=== PATIENT | female | born 1975 | race Two or more races ===

== ENCOUNTER → 2016-07-04 | Outpatient (CLI) | payer OTHER ==
[~2016-07-04] MED LIST: ALENDRONATE SODIUM; CALCIUM; FLUOXETINE; LAMOTRIGINE; OMEPRAZOLE; VITAMIN D
--- NOTE | 2016-07-04 15:48 | RADRPT ---
PROCEDURE: Gastric emptying scan CLINICAL INDICATION: 41 -year-old patient with abdominal pain. TECHNIQUE: Following the oral administration of 1.0 mCi of Tc-99m sulfur colloid, labeled to a yonatan id meal, gastric emptying study was obtained. COMPARISON: No prior studies. FINDINGS: The stomach is well visualized. The small intestines are identified. There is evidence of normal gastric emptying rate from the start of the study with calculated T1/2 t arik of 56 minutes (normal range is 30 - 90 minutes). There is no evidence of increased activity in the chest to suggest the presence of gastroesophageal reflux. IMPRESSION: Normal gastric emptying rate . RPTAT: HH .Mery Hodges MD, MD Date Time Electronically viewed and signed by .Mery Hodges MD, on 07/04/2016 15:48 .L/
== END | disposition home or self-care (01) ==
LOC: NUC 09:21
PROVIDERS: ATTEND Surgery Surgical Oncology
DX: K44.9 Diaphragmatic hernia without obstruction or gangrene (principal)
CPT/HCPCS: 78264; A9541

== ENCOUNTER 2016-08-29 10:31 | Inpatient (IN) | payer OTHER ==
[2016-08-28 14:14] VITALS: BMI 27.1
[2016-08-29] VITALS (15 sets, daily range): BP systolic 104–138; BP diastolic 55–75; PULSE 88–120; RESP 12–28; Ht 157.5 cm; Wt 63.0 kg
[~2016-08-29] VITALS: Ht 157.5 cm; Wt 63.0 kg
[2016-08-29] MEDS ORDERED: SOD CHLORIDE 0.9% 1,000 ML IV SCH (11:00)
[2016-08-29] MEDS ORDERED: CEFAZOLIN 2 GM/50 ML (PMX) 50 ML IVPB ONE (11:00)
[2016-08-29] MEDS ORDERED: MIDAZOLAM 1 MG/ML 2 ML INJ ONE ×2 (13:40→14:02)
[2016-08-29] MEDS ORDERED: FENTAnyl 50 MCG/ML VIAL ONE (13:40)
[2016-08-29] MEDS ORDERED: METOCLOPRAMIDE 10 MG INJ ONE (13:46)
[2016-08-29] MEDS ORDERED: FAMOTIDINE 20 MG INJ ONE (13:48)
[2016-08-29] MEDS ORDERED: CEFAZOLIN 1 GM INJ ONE (14:11)
[2016-08-29] MEDS ORDERED: ROCURONIUM 50 MG INJ ONE (14:21)
[2016-08-29] MEDS ORDERED: PHENYLephrine (100 MCG/ML) 5ML SYG ONE (14:26)
[2016-08-29] MEDS ORDERED: DEXAMETHASONE 4 MG/ML 1 ML INJ ONE (14:41)
[2016-08-29] MEDS ORDERED: ONDANSETRON 4 MG INJ ONE (14:41)
[2016-08-29] MEDS ORDERED: BUPIVACAINE 0.25% (MPF) 30 ML INJ ONE (14:45)
[2016-08-29] MEDS ORDERED: PROCHLORPERAZINE 10 MG INJ IV PRN (15:00)
[2016-08-29] MEDS ORDERED: HYDROmorphONE (0.2 MG/ML) 10ML SYG IV PRN ×3 (15:00)
[2016-08-29] MEDS ORDERED: DIPHENHYDRAMINE 50 MG INJ IV PRN (15:00)
[2016-08-29] MEDS ORDERED: MEPERIDINE 25 MG INJ IV PRN (15:00)
[2016-08-29] MEDS ORDERED: ROPIVACAINE 0.2% 20 ML VIAL ONE (15:50)
[2016-08-29] MEDS ORDERED: morphine 10 MG INJ ONE (16:10)
--- NOTE | 2016-08-29 16:38 | OPR ---
DATE OF OPERATION: 08/29/2016 INDICATION: This is a 41-year-old female with recalcitrant GERD who has not had adequate symptom co ntrol with maximal PPIs. Additionally, she has been suffering osteoporosis and has been recommended for surgical management of her recalcitrant GERD. Risks, alternatives, benefits, and personnel wer e discussed with the patient. The patient expressed understanding and consents to the operation. PREOPERATIVE DIAGNOSIS: Recalcitrant gastroesophageal reflux disease and osteoporosis. POSTOPERATIVE DIAGNOSIS: Recalcitrant gastroesophageal reflux disease and osteoporosis. OPERATION PERFORMED: Laparoscopic Kashif fundoplication with ACell 6-layer mesh. PROCEDURE: The patient was taken to the OR and prepped and draped in the usual sterile fashion. Abebe rgical timeout was performed. IV antibiotics were given. Left upper periumbilical transverse incis ion was made with a 15 blade. Using a 12 mm optical trocar, optical entry was performed. Midepigas tric 5 mm optical trocar, right mid clavicular subcostal 5 mm optical trocar, left subcostal midclav icular 12 mm optical trocar, left upper flank 5 mm optical trocars are placed under direct visualiza tion. The midepigastric port is removed and used to place a snake liver retractor. The hiatus is i dentified. ____ is identified and divided using laparoscopic Harmonic. This was taken all the way down to the right pretty. The right pretty is bluntly dissected off from the esophagus. The posterior dissection is achieved and esophagus is mobilized posteriorly. Anteriorly, the peritoneum off the e sophagus is also divided using laparoscopic Harmonic. The left pretty was then identified, and the es ophagus is completely mobilize in a 360 fashion. Winter drain was placed around the esophagus, and an 0 Vicryl Endoloop was used to secure the Maribell drain for retraction. The short gastrics were divided in order to mobilize the fundus. The posterior fundus was then identified with a 2-0 silk s uture. This was used to retract the fundus posteriorly behind the esophagus. Shoeshine maneuver wa s performed, and there was no evidence of any tension. A 50 gauge bougie is placed into the esophag us and held in place after appropriate placement. The fundoplication was then performed with 1 inte rrupted 3-0 Prolene across the fundus with bite across the esophagus and back onto the right fundus. An interrupted silk suture is placed 1 cm above and 1 cm below this initial point. The bougie was then removed. The hiatus was then reinforced with an ACell mesh cut to fashion with a keyhole inci cathryn. This was sutured in place with interrupted 2-0 Ethibond to the right and left pretty. There wa s good hemostasis. Ports removed under direct visualization. Skin was closed using skin jason. Local anesthesia was injected, and dry dressings were applied. Dictated By: CAMDEN PULLIAM/JOSE Conf#: [id number] DID#: [id number]
[2016-08-29 16:52] LABS: ADD SCAN DIFF NO
[2016-08-29 16:55] LABS: BASOPHILS % 0.4 % (0.0-2.0); EOSINOPHILS % 0.2 % (0.0-7.0); HEMATOCRIT 36.6 % (37.0-47.0); HEMOGLOBIN 12.2 g/dl (12.0-16.0); LYMPHOCYTES # 1.8 10^3/ul (0.8-2.9); LYMPHOCYTES % 16.8 % (15.0-51.0); MEAN CORPUSCULAR HEMOGLOBIN 29.8 pg (29.0-33.0); MEAN CORPUSCULAR HGB CONC 33.3 g/dl (32.0-37.0); MEAN CORPUSCULAR VOLUME 89.5 fl (82.0-101.0); MEAN PLATELET VOLUME 8.9 fl (7.4-10.4); MONOCYTE # 0.3 10^3/ul (0.3-0.9); MONOCYTES % 2.8 % (0.0-11.0); NEUTROPHIL # 8.6 10^3/ul (1.6-7.5); NEUTROPHILS % 79.4 % (39.0-77.0); PLATELET COUNT 226 10^3/UL (140-415); RED BLOOD COUNT 4.09 10^6/ul (4.20-5.40); RED CELL DISTRIBUTION WIDTH 12.1 % (11.5-14.5); WHITE BLOOD COUNT 10.9 10^3/ul (4.8-10.8)
[2016-08-29 17:17] LABS: ALBUMIN 3.4 g/dl (3.3-4.9); ALBUMIN/GLOBULIN RATIO 1.41; BILIRUBIN,INDIRECT 0.3 mg/dl (0-1.1); BILIRUBIN,TOTAL 0.3 mg/dl (0.2-1.3); CALCIUM 8.2 mg/dl (8.4-10.2); CREATININE 0.59 mg/dl (0.44-1.00); POTASSIUM 3.6 mmol/L (3.5-5.1); TOTAL PROTEIN 5.8 g/dl (6.1-8.1)
[2016-08-29] MEDS: CEFAZOLIN 2 GM/50 ML (PMX) 50 ML IVPB SCH (18:35)
[2016-08-29] MEDS: D5W-0.45 NACL + KCL 20 MEQ 1,000 ML IV SCH (18:35)
--- NOTE | 2016-08-29 19:00 | HP ---
DATE OF ADMISSION: 08/29/2016 CHIEF COMPLAINT AND HISTORY OF PRESENT ILLNESS: The patient is a 41-year-old female with a history of chronic heartburn, status post endoscopy back in [address] Sung. The patient at that time u sed to be on omeprazole 40 mg once a day and Zantac 200 mg at bedtime. The patient also was noted t o have hiatal hernia. The patient, however, continued to remain symptomatic and was subsequently di agnosed with recalcitrant gastroesophageal reflux disease. The patient was brought in to hospital t [facility] and underwent laparoscopic Kashif fundoplication. The patient subsequently sedated. The patie nt is breathing comfortably, no reported vomiting. The patient does not have any chest congestion. The patient prior to surgery was told that she also has osteoporosis and therefore surgical managem ent was recommended. Patient gastric emptying prior to surgery was normal. The patient also had pr eoperative gastrin level, the result is not available. REVIEW OF SYSTEMS: Rather limited as the patient was sedated but since admission, the patient has n ot had any vomiting. The patient is moving all extremities. ALLERGIES: NAPROSYN. ALLERGIES: NONE. SOCIAL HISTORY: No smoking, no alcohol. FAMILY HISTORY: Noncontributory. PHYSICAL EXAMINATION: GENERAL: The patient is sedated. VITAL SIGNS: Temperature 98, pulse 58, respirations 15, blood pressure 107/55, O2 saturation 99% on 2 liters nasal cannula. HEENT: No eye or ear discharge. Nose and ears normal externally. NECK: No mass. CHEST: Fairly clear. CARDIOVASCULAR: S1, S2 normal. Mild sinus tachycardia. ABDOMEN: The patient is status post laparoscopic fundoplication. EXTREMITIES: No pedal edema. Pedal pulses palpable. SKIN: Without acute rash. NEUROLOGIC: The patient is sedated but moves all extremities spontaneously. LABORATORY DATA: Sodium 137, potassium 3.6, BUN 8, creatinine 0.5, calcium 8.2. Liver enzymes norm al. WBC 10.9, hemoglobin 12.2, platelets 226. IMPRESSION: 1. Recalcitrant gastroesophageal reflux disease and osteoporosis. 2. Hiatal hernia. 3. The patient is status post laparoscopic knee pain and Kashif fundoplication. PLAN: The patient will be admitted on medical floor. Patient will be started on clear liquids once she is more awake. The patient will be given IV fluids, IV morphine. Will also add IV Zofran for p ain control. We will also start her on IV Protonix. Will do followup labs in the morning. We will use SCD for DVT prophylaxis. Plan of care discussed with patient's parents as well as nursing sta ff present in the room. Dictated By: VALENCIA SANTANA/JOSE Conf#: [id number] DID#: [id number]
[2016-08-29] MEDS: morphine 2 MG INJ IV PRN (22:53)
[2016-08-30] VITALS: BP 96/58; RESP 18
[2016-08-30] MEDS: CEFAZOLIN 2 GM/50 ML (PMX) 50 ML IVPB SCH ×2 (01:24→08:30)
[2016-08-30] MEDS: D5W-0.45 NACL + KCL 20 MEQ 1,000 ML IV SCH ×2 (02:03→12:03)
[2016-08-30] MEDS: morphine 2 MG INJ IV PRN (02:19)
[2016-08-30 05:15] LABS: ADD SCAN DIFF NO
[2016-08-30 05:29] LABS: BASOPHILS % 0.2 % (0.0-2.0); HEMATOCRIT 38.7 % (37.0-47.0); HEMOGLOBIN 12.9 g/dl (12.0-16.0); LYMPHOCYTES # 1.5 10^3/ul (0.8-2.9); LYMPHOCYTES % 12.2 % (15.0-51.0); MEAN CORPUSCULAR HEMOGLOBIN 29.8 pg (29.0-33.0); MEAN CORPUSCULAR HGB CONC 33.3 g/dl (32.0-37.0); MEAN CORPUSCULAR VOLUME 89.4 fl (82.0-101.0); MEAN PLATELET VOLUME 9.2 fl (7.4-10.4); MONOCYTE # 0.7 10^3/ul (0.3-0.9); NEUTROPHILS % 81.2 % (39.0-77.0); PLATELET COUNT 322 10^3/UL (140-415); RED BLOOD COUNT 4.33 10^6/ul (4.20-5.40); WHITE BLOOD COUNT 12.3 10^3/ul (4.8-10.8)
[2016-08-30 06:05] LABS: POTASSIUM 3.4 mmol/L (3.5-5.1)
[2016-08-30 06:07] LABS: CREATININE 0.55 mg/dl (0.44-1.00)
[2016-08-30 06:08] LABS: ALBUMIN/GLOBULIN RATIO 1.42; BILIRUBIN,INDIRECT 0.4 mg/dl (0-1.1); BILIRUBIN,TOTAL 0.4 mg/dl (0.2-1.3); TOTAL PROTEIN 6.8 g/dl (6.1-8.1)
[2016-08-30 06:09] LABS: CALCIUM 8.8 mg/dl (8.4-10.2)
[2016-08-30 08:03] VITALS: BP 112/73; RESP 19
[2016-08-30] MEDS ORDERED: PANTOPRAZOLE 40 MG INJ IV SCH (09:00)
[2016-08-30] MEDS ORDERED: HYDROCODONE/APAP (5/325) TAB PO PRN ×2 (09:00)
--- NOTE | 2016-08-30 09:24 | OPR ---
Date/Time of Note Date/Time of Note DATE: 08/30/16 TIME: 09:24 Operative Report Procedure Date: August 29, 2016 Preoperative Diagnosis recalcitrant gerd Postoperative Diagnosis same Operation Performed lap nadege fundoplication with mesh Surgeon: Darling MENG G. SEONG August 30, 2016 09:24
--- NOTE | 2016-08-30 09:25 | PN ---
Date/Time of Note Date/Time of Note DATE: 08/30/16 TIME: 09:25 Assessment/Plan VTE Prophylaxis VTE Prophylaxis Intervention: SCD's Lines/Catheters IV Catheter Type (from Nrs): Peripheral IV Urinary Cath still in place: Yes Reason Cath still needed: other (indicate) Assessment/Plan Chief Complaint/Hosp Course s/p nadege fundoplication with mesh Problems: Assessment/Plan ok to dc when tolerating clears Subjective 24 Hr Interval Summary Free Text/Dictation doing well, no issues Exam/Review of Systems Vital Signs Vitals Vital Signs Date Time Temp Pulse Resp B/P Pulse Ox O2 Delivery O2 Flow Rate FiO2 08/30/16 08:03 98.0 106 19 112/73 98 08/29/16 18:47 2.0 08/29/16 18:30 Nasal Cannula Intake and Output 08/29/16 08/29/16 08/30/16 15:00 23:00 07:00 Intake Total 1450 ml 800 ml Output Total 920 ml 1100 ml Balance 530 ml -300 ml Exam c/d/i Results Result Diagram: 08/30/16 0415 08/30/16 0415 Results 24 hrs Laboratory Tests Test 08/29/16 16:46 08/30/16 04:15 White Blood Count 10.9 H 12.3 H Red Blood Count 4.09 L 4.33 Hemoglobin 12.2 12.9 Hematocrit 36.6 L 38.7 Mean Corpuscular Volume 89.5 89.4 Mean Corpuscular Hemoglobin 29.8 29.8 Mean Corpuscular Hemoglobin Concent 33.3 33.3 Red Cell Distribution Width 12.1 12.0 Platelet Count 226 322 # Mean Platelet Volume 8.9 9.2 Neutrophils % 79.4 H 81.2 H Lymphocytes % 16.8 12.2 L Monocytes % 2.8 6.0 Eosinophils % 0.2 0.0 Basophils % 0.4 0.2 Nucleated Red Blood Cells % 0.0 0.0 Neutrophils # 8.6 H 10.0 H Lymphocytes # 1.8 1.5 Monocytes # 0.3 0.7 Eosinophils # 0.0 0.0 Basophils # 0.0 0.0 Nucleated Red Blood Cells # 0.0 0.0 Sodium Level 137 138 Potassium Level 3.6 3.4 L Chloride Level 109 102 Carbon Dioxide Level 24 25 Anion Gap 8 14 Blood Urea Nitrogen 8 4 L Creatinine 0.59 0.55 Glucose Level 142 116 Calcium Level 8.2 L 8.8 Total Bilirubin 0.3 0.4 Direct Bilirubin 0.00 0.00 Indirect Bilirubin 0.3 0.4 Aspartate Amino Transf (AST/SGOT) 44 45 Alanine Aminotransferase (ALT/SGPT) 53 43 Alkaline Phosphatase 46 49 Total Protein 5.8 L 6.8 # Albumin 3.4 4.0 Globulin 2.40 2.80 Albumin/Globulin Ratio 1.41 1.42 Medications Medications Current Medications Cefazolin Sodium/ Dextrose (Ancef 2 Gm/50 ml (Pmx)) 50 ml @ 100 mls/hr Q8H IVPB Last administered on 08/30/16 01:24; Admin Dose 100 MLS/HR; Start at 16:30; Stop 08/30/16 at 16:29 Morphine Sulfate 2 mg 2 mg Q2H PRN IV PAIN LEVEL 6-10 Last administered on 08/30 02:19; Admin Dose 2 MG; Start 08/29/16 at 16:30 Potassium Chloride/Dextrose/ Sod Cl (D5-1/2ns + KCl 20 Meq) 1,000 ml @ 100 mls/ hr Q10H IV Last administered on 08/29/16 18:35; Admin Dose 100 MLS/HR; Start 08/29/16 at 16:03 Pantoprazole (Protonix Iv) 40 mg QAM IV ; Start 08/30/16 at 09:00 Acetaminophen/ Hydrocodone Bitart ([place] (5/325)) 2 tab Q6H PRN PO PAIN LEVEL 7 -10; Start 08/30/16 at 09:00 Acetaminophen/ Hydrocodone Bitart ([place] (5/325)) 1 tab Q6H PRN PO PAIN LEVEL 4 -6; Start 08/30/16 at 09:00 Darling MENG August 30, 2016 09:25
[2016-08-30] MEDS ORDERED: ACETAMINOPHEN 325/HYDROC 7.5 15 ML CUP PO ONE (10:00)
--- NOTE | 2016-08-30 11:07 | PN ---
Date/Time of Note Date/Time of Note DATE: 08/30/16 TIME: 11:06 Assessment/Plan VTE Prophylaxis VTE Prophylaxis Intervention: other Lines/Catheters IV Catheter Type (from Nrsg): Peripheral IV Urinary Cath still in place: Yes Reason Cath still needed: skin wounds contaminated by urine Assessment/Plan Chief Complaint/Hosp Course 1. Recalcitrant gastroesophageal reflux disease and osteoporosis. 2. Hiatal hernia. - status post laparoscopic knee pain and Kashif fundoplication. Problems: Subjective 24 Hr Interval Summary Free Text/Dictation Patient complain of pain related to recent surgery Exam/Review of Systems Vital Signs Vitals Vital Signs Date Time Temp Pulse Resp B/P Pulse Ox O2 Delivery O2 Flow Rate FiO2 08/30/16 08:03 98.0 106 19 112/73 98 08/29/16 18:47 2.0 08/29/16 18:30 Nasal Cannula Intake and Output 08/29/16 08/29/16 08/30/16 15:00 23:00 07:00 Intake Total 1450 ml 800 ml Output Total 920 ml 1100 ml Balance 530 ml -300 ml Exam Constitutional: well developed Head: atraumatic, normocephalic Neck: supple Respiratory: clear to auscultation Cardiovascular: regular rate and rhythm Gastrointestinal: soft, tender Extremities: normal pulses Results Result Diagram: 08/30/16 0415 08/30/16 0415 Results 24 hrs Laboratory Tests Test 08/29/16 16:46 08/30/16 04:15 White Blood Count 10.9 H 12.3 H Red Blood Count 4.09 L 4.33 Hemoglobin 12.2 12.9 Hematocrit 36.6 L 38.7 Mean Corpuscular Volume 89.5 89.4 Mean Corpuscular Hemoglobin 29.8 29.8 Mean Corpuscular Hemoglobin Concent 33.3 33.3 Red Cell Distribution Width 12.1 12.0 Platelet Count 226 322 # Mean Platelet Volume 8.9 9.2 Neutrophils % 79.4 H 81.2 H Lymphocytes % 16.8 12.2 L Monocytes % 2.8 6.0 Eosinophils % 0.2 0.0 Basophils % 0.4 0.2 Nucleated Red Blood Cells % 0.0 0.0 Neutrophils # 8.6 H 10.0 H Lymphocytes # 1.8 1.5 Monocytes # 0.3 0.7 Eosinophils # 0.0 0.0 Basophils # 0.0 0.0 Nucleated Red Blood Cells # 0.0 0.0 Sodium Level 137 138 Potassium Level 3.6 3.4 L Chloride Level 109 102 Carbon Dioxide Level 24 25 Anion Gap 8 14 Blood Urea Nitrogen 8 4 L Creatinine 0.59 0.55 Glucose Level 142 116 Calcium Level 8.2 L 8.8 Total Bilirubin 0.3 0.4 Direct Bilirubin 0.00 0.00 Indirect Bilirubin 0.3 0.4 Aspartate Amino Transf (AST/SGOT) 44 45 Alanine Aminotransferase (ALT/SGPT) 53 43 Alkaline Phosphatase 46 49 Total Protein 5.8 L 6.8 # Albumin 3.4 4.0 Globulin 2.40 2.80 Albumin/Globulin Ratio 1.41 1.42 Medications Medications Current Medications Cefazolin Sodium/ Dextrose 50 ml @ 100 mls/hr Q8H IVPB Last administered on 01:24; Admin Dose 100 MLS/HR; Start 08/29/16 at 16:30; Stop 08/30/16 at 16:29 Potassium Chloride/Dextrose/ Sod Cl (D5-1/2ns + KCl 20 Meq) 1,000 ml @ 100 mls/ hr Q10H IV Last administered on 08/29/16 18:35; Admin Dose 100 MLS/HR; Start 08/29/16 at 16:03 Pantoprazole (Protonix Iv) 40 mg QAM IV ; Start 08/30/16 at 09:00 SARAH DONOVAN August 30, 2016 11:07
[2016-08-30] MEDS ORDERED: POTASSIUM CHLORIDE 20 MEQ POWDER FOR ORAL SOLN PO ONE (11:30)
[2016-08-31] MEDS ORDERED: ACET160O41 PO (21:02)
[2016-08-31] MEDS ORDERED: BISA-57 PO (21:03)
== END 2016-08-30 15:25 | disposition home or self-care (01) | DRG 328 ==
LOC: REC 12:09 → MS1 17:45
PROVIDERS: ADMIT Internal Medicine; ATTEND Surgery
PROC: 0WUF4JZ Supplement Abdominal Wall with Synthetic Substitute, Percutaneous Endoscopic Approach (ICD-10-PCS; 2016-08-29)
PROC: 0DV44ZZ Restriction of Esophagogastric Junction, Percutaneous Endoscopic Approach (ICD-10-PCS; principal; 2016-08-29 13:00)
DX: K21.9 Gastro-esophageal reflux disease without esophagitis (principal); K44.9 Diaphragmatic hernia without obstruction or gangrene; M81.0 Age-related osteoporosis without current pathological fracture
CPT/HCPCS: 80053; 84703; 85025; C9113; J0690; J0780; J1100; J1170; J1200; J2175; J2250; J2270; J2370; J2405; J2765; J2795; J3010; J3480; Q4166

== ENCOUNTER 2016-08-31 17:35 | Emergency (ER) | payer OTHER ==
[~2016-08-31] VITALS: Ht 157.5 cm; Wt 62.0 kg
[2016-08-31 17:38] VITALS: Ht 157.5 cm; Wt 62.0 kg
[2016-08-31] MEDS ORDERED: morphine 4 MG/ML VIAL IV STA (18:37)
[2016-08-31] MEDS ORDERED: ONDANSETRON 4 MG INJ IV STA (18:37)
[2016-08-31] MEDS ORDERED: SOD CHLORIDE 0.9% 1,000 ML IV ONE (19:00)
[2016-08-31 19:06] LABS: URINE BLOOD (Dip) POC 2+ (NEGATIVE)
[2016-08-31 19:08] LABS: ADD SCAN DIFF NO
[2016-08-31 19:16] LABS: BASOPHILS % 0.5 % (0.0-2.0); EOSINOPHILS # 0.1 10^3/ul (0.0-0.5); HEMATOCRIT 42.1 % (37.0-47.0); HEMOGLOBIN 14.1 g/dl (12.0-16.0); LYMPHOCYTES # 2.1 10^3/ul (0.8-2.9); LYMPHOCYTES % 26.1 % (15.0-51.0); MEAN CORPUSCULAR HEMOGLOBIN 29.4 pg (29.0-33.0); MEAN CORPUSCULAR HGB CONC 33.5 g/dl (32.0-37.0); MEAN CORPUSCULAR VOLUME 87.7 fl (82.0-101.0); MEAN PLATELET VOLUME 9.1 fl (7.4-10.4); MONOCYTE # 0.6 10^3/ul (0.3-0.9); MONOCYTES % 7.9 % (0.0-11.0); NEUTROPHIL # 5.2 10^3/ul (1.6-7.5); NEUTROPHILS % 64.3 % (39.0-77.0); PLATELET COUNT 326 10^3/UL (140-415); RED CELL DISTRIBUTION WIDTH 12.1 % (11.5-14.5); WHITE BLOOD COUNT 8.1 10^3/ul (4.8-10.8)
--- NOTE | 2016-08-31 19:26 | ERD ---
ER Documentation Chief Complaint Date/Time DATE: 08/31/16 TIME: 19:22 Chief Complaint hernia surgery thursday, pain medication not helping (norco 7.5 ) HPI This a 41-year-old female who presents to the emergency department today complaining of abdominal pain. Patient had surgery on August 29 and was sent home with hydrocodone acetaminophen liquid 7.5. Patient is here with her who also states she has been constipated for the past 5 days. States she was discharged home from the hospital yesterday and she did still have pain at that time. States that she is passing gas. States that she is on a liquid diet at this time because she is unsure if she is supposed to take pills. States that she wants to know if she is able to take her antidepressant medication. States that she thought she had a fever earlier but she had no way of checking to see if she did and therefore they decided to come to the emergency room. Denies any vomiting, diarrhea ROS All systems reviewed and are negative except as per history of present illness. Medications Home Meds Active Scripts Bisacodyl* (Dulcolax*) 5 Mg Tablet.dr, 5 MG PO DAILY, #14 TAB Prov:IRWIN LEE PA-C 08/31/16 Acetaminophen* (Acetaminophen* Susp) 160 Mg/5 Ml Oral.susp, 20 ML PO Q4H Y for PAIN OR FEVER, #1 BOTTLE Prov:IRWIN LEE PA-C 08/31/16 Reported Medications [Vitamin D ] No Conflict Check 12/19/15 [Calcium] No Conflict Check 12/19/15 [Alendronate Sodium] No Conflict Check 12/19/15 [Lamotrigine] No Conflict Check 12/19/15 [Fluoxetine] No Conflict Check 12/19/15 [Omeprazole] No Conflict Check 12/19/15 Allergies Allergies: Coded Allergies: naproxen (Verified Allergy, Intermediate, 12/19/15) ABDOMINAL PAIN pork derived (porcine) (Verified Allergy, Unknown, 08/29/16) PMhx/Soc History of Surgery: Yes (esophageal sx on 08/29/16) Anesthesia Reaction: No Hx Neurological Disorder: No Hx Respiratory Disorders: No Hx Cardiac Disorders: No Hx Psychiatric Problems: No Hx Miscellaneous Medical Probl: No Hx Alcohol Use: No Hx Substance Use: No Hx Tobacco Use: No Smoking Status: Never smoker Physical Exam Vitals Vital Signs Date Time Temp Pulse Resp B/P Pulse Ox O2 Delivery O2 Flow Rate FiO2 08/31/16 17:38 97.8 110 18 124/80 98 Physical Exam Const: Mild distress Head: Atraumatic Eyes: Normal Conjunctiva ENT: Normal External Ears, Nose and Mouth. Neck: Full range of motion..~ No meningismus. Resp: Clear to auscultation bilaterally Cardio: Regular rate and rhythm, no murmurs Abd: Soft, diffuse abdominal tenderness with multiple areas of incisions and jason placed. Wounds appear to be healed well and well approximated, non distended. Normal bowel sounds Skin: No petechiae or rashes Back: No midline or flank tenderness Ext: No cyanosis, or edema Neur: Awake and alert Psych: Normal Mood and Affect Result Diagram: 08/31/16185408/31/161854 Results 24 hrs Laboratory Tests Test 08/31/16 18:55 08/31/16 19:08 White Blood Count 8.110^3/ul Red Blood Count 4.8010^6/ul Hemoglobin 14.1g/dl Hematocrit 42.1% Mean Corpuscular Volume 87.7fl Mean Corpuscular Hemoglobin 29.4pg Mean Corpuscular Hemoglobin Concent 33.5g/dl Red Cell Distribution Width 12.1% Platelet Count 11089^3/UL Mean Platelet Volume 9.1fl Neutrophils % 64.3% Lymphocytes % 26.1% Monocytes % 7.9% Eosinophils % 1.0% Basophils % 0.5% Nucleated Red Blood Cells % 0.0/100WBC Neutrophils # 5.210^3/ul Lymphocytes # 2.110^3/ul Monocytes # 0.610^3/ul Eosinophils # 0.110^3/ul Basophils # 0.010^3/ul Nucleated Red Blood Cells # 0.010^3/ul Sodium Level 138mmol/L Potassium Level 3.6mmol/L Chloride Level 101mmol/L Carbon Dioxide Level 24mmol/L Anion Gap 17 Blood Urea Nitrogen 8mg/dl Creatinine 0.59mg/dl Glucose Level 112mg/dl Calcium Level 9.4mg/dl Total Bilirubin 0.5mg/dl Direct Bilirubin 0.00mg/dl Indirect Bilirubin 0.5mg/dl Aspartate Amino Transf (AST/SGOT) 41IU/L Alanine Aminotransferase (ALT/SGPT) 45IU/L Alkaline Phosphatase 61IU/L Total Protein 8.0g/dl Albumin 4.9g/dl Globulin 3.10g/dl Albumin/Globulin Ratio 1.58 Bedside Urine pH (LAB) 6.0 Bedside Urine Protein (LAB) 1+ Bedside Urine Glucose (UA) Negative Bedside Urine Ketones (LAB) Trace Bedside Urine Blood 2+ Bedside Urine Nitrite (LAB) Negative Bedside Urine Leukocyte Esterase (L Negative Current Medications Medications (Trade) Dose Ordered Sig/Leidy Route PRN Reason Start Time Stop Time Status Last Admin Dose Admin Morphine Sulfate (morphine) 4 mg ONCE STAT IV 08/31/16 18:37 08/31/16 18:38 DC 08/31/16 18:46 Ondansetron HCl 4 mg 4 mg ONCE STAT IV 08/31/16 18:37 08/31/16 18:38 DC 08/31/16 18:46 Sodium Chloride (NS) 1,000 ml @ 1,000 mls/hr Q1H ONCE IV 08/31/16 19:00 08/31/16 19:59 DC 08/31/16 18:47 Diclofenac Sodium (Dyloject) 37.5 mg ONCE STAT IV 08/31/16 20:24 08/31/16 20:26 DC 08/31/16 20:33 DIAGNOSTIC IMAGING REPORT Patient: ALFREDO BERNSTEIN : 1975 Age: 41 Sex: F MR #: [id number] DOS: 08/31/16 0000 Ordering MD: IRWIN LEE PA-C Location: [facility] Room/Bed: PROCEDURE: XR Abdomen. CLINICAL INDICATION: Abdominal pain, postop TECHNIQUE: AP abdomen x-ray. COMPARISON: None FINDINGS: The bowel gas pattern is normal. There is no evidence of obstruction. Mild stool is noted within the colon and rectum. Gas is noted throughout the stomach , small and large bowel, as well as rectum. There are no findings of free air or perforation. There are no abnormal calcifications overlying the urinary tracts. The osseus structures are unremarkable. Scattered skin jason are present. IMPRESSION: Mild constipation. Mild postsurgical changes. RPTAT: QQ .Laurie Whitten MD, MD Date Time Electronically viewed and signed by .Laurie Whitten MD, on 08/31/2016 19:59 .F/ CC: IRWIN LEE PA-C Procedures/[facility] This 41-year-old female who presents the emergency department today complaining of abdominal pain postoperatively. Upon review of patient's medical records patient had surgery on August 29 and had a Kashif fundoplication as well as a hiatal hernia repair. Patient was discharged home on [place] 7.5 every 6 hours in liquid form. Patient's physical exam she had diffuse abdominal tenderness and she has been complaining of constipation and therefore I did discuss the patient with Dr. Nieves and he has recommended that I get laboratory work as well as a KUB to rule out an ileus Laboratory work shows no elevated white blood cell count. She is not anemic. Platelets are within normal limits. Electrolytes are within normal limits. Liver functions normal limits. UA is negative for infection however there is 2+ blood. KUB shows mild constipation and mild postsurgical changes. Gas is noted throughout the stomach, small and large bowel as well as rectum. There are no findings of free air perforation. There is no evidence to suggest ileus or bowel obstruction. Low suspicion for acute surgical abdomen. Patient was given IV fluids, morphine,, Diloject, Zofran as patient was tachycardic on intake. She is afebrile and otherwise well-appearing. Her oxygen saturations 98%. Low suspicion for pneumonia or concern for postop fever. Patient's wounds are well-healed and well approximated. There is no purulent drainage and have low suspicion for sepsis or deep space infection. Patient symptoms at this time is consistent with abdominal pain secondary to postoperative pain. Patient will be given a prescription for Dulcolax, liquid Tylenol. She may continue taking the [place] that she was prescribed. She has been instructed to call Dr. Brennan office tomorrow to be evaluated further. At this time the patient is stable for discharge and outpatient management. Patient should follow up with their PCP in the next 1-2 days. They may return to the emergency department sooner for any persistent or worsening of symptoms. Patient understood and agreed with the plan. Discussed the patient with Dr. Nieves and he is seen and evaluated the patient and he is in agreement with the plan Departure Diagnosis: Primary Impression: Postoperative abdominal pain Additional Impression: Constipation Constipation type: unspecified constipation type Qualified Code: K59.00 - Constipation, unspecified constipation type Condition: Fair IRWIN LEE PA-C August 31, 2016 19:26
[2016-08-31 19:31] LABS: ALBUMIN 4.9 g/dl (3.3-4.9)
[2016-08-31 19:32] LABS: POTASSIUM 3.6 mmol/L (3.5-5.1)
[2016-08-31 19:34] LABS: ALBUMIN/GLOBULIN RATIO 1.58; BILIRUBIN,INDIRECT 0.5 mg/dl (0-1.1); BILIRUBIN,TOTAL 0.5 mg/dl (0.2-1.3); CALCIUM 9.4 mg/dl (8.4-10.2); CREATININE 0.59 mg/dl (0.44-1.00)
--- NOTE | 2016-08-31 19:59 | RADRPT ---
PROCEDURE: XR Abdomen. CLINICAL INDICATION: Abdominal pain, postop TECHNIQUE: AP abdomen x-ray. COMPARISON: None FINDINGS: The bowel gas pattern is normal. There is no evidence of obstruction. Mild stool is noted within the colon and rectum. Gas is noted throughout the stomach, small and large bowel, as well as rectum. There are no findings of free air or perforation. There are no abnormal calcifications overlying the urinary tracts. The osseus structures are unremarkable. Scattered skin jason are present. IMPRESSION: Mild constipation. Mild postsurgical changes. RPTAT: QQ .Laurie Whitten MD, Date Time Electronically viewed and signed by .Laurie Whitten MD, on 08/31/2016 19:59 .F/
[2016-08-31] MEDS ORDERED: DICLOFENAC SODIUM 37.5 MG/ML VIAL IV STA (20:24)
[2016-08-31] MEDS ORDERED: ACET160O41 PO (21:02)
[2016-08-31] MEDS ORDERED: BISA-57 PO (21:03)
== END 2016-08-31 21:12 | disposition home or self-care (01) ==
LOC: FTE 17:35
DX: G89.18 Other acute postprocedural pain (principal); R10.84 Generalized abdominal pain; K59.00 Constipation, unspecified
CPT/HCPCS: 74000; 80053; 81003; 85025; 96374; 96375; J2270; J2405; J7030; Z7502; Z7610

== ENCOUNTER 2016-12-02 19:16 | Emergency (ER) | payer OTHER ==
[~2016-12-02] VITALS: Ht 165.1 cm; Wt 56.0 kg
[~2016-12-02 19:16] MED LIST changes: +ACET160O41 PO; +BISA-57 PO
[2016-12-02 20:01] VITALS: Ht 165.1 cm; Wt 56.0 kg
[2016-12-02] MEDS ORDERED: SOD CHLORIDE 0.9% 1,000 ML IV STA (21:17)
[2016-12-02] MEDS ORDERED: ONDANSETRON 4 MG INJ IV STA (21:17)
[2016-12-02] MEDS ORDERED: morphine 4 MG/ML VIAL IV STA ×2 (21:17→22:46)
--- NOTE | 2016-12-02 21:29 | ERD ---
ER Documentation Chief Complaint Date/Time DATE: 12/02/16 TIME: 21:26 Chief Complaint abd pain x 3 month s/p hernia repair. +nausea HPI 41-year-old female presents here in emergency department for complaints of mid abdominal pain for 3 months now, worsening last 2 days. Patient had a hernia repair, hiatal hernia repair, started to have the pain afterwards, was seen by surgeon afterwards, but the pain continues to progress and more painful. Patient 's complaining of nausea but denies any vomiting. Patient denies any fever or chills. Patient denies any diarrhea or constipation at times. Patient denies any flank pain. Patient denies any hematuria or dysuria. ROS All systems reviewed and are negative except as per history of present illness. Medications Home Meds Active Scripts Bisacodyl* (Dulcolax*) 5 Mg Tablet.dr, 5 MG PO DAILY, #14 TAB Prov:IRWIN LEE PA-C 08/31/16 Acetaminophen* (Acetaminophen* Susp) 160 Mg/5 Ml Oral.susp, 20 ML PO Q4H Y for PAIN OR FEVER, #1 BOTTLE Prov:IRWIN LEE PA-C 08/31/16 Reported Medications [Vitamin D ] No Conflict Check 12/19/15 [Calcium] No Conflict Check 12/19/15 [Alendronate Sodium] No Conflict Check 12/19/15 [Lamotrigine] No Conflict Check 12/19/15 [Fluoxetine] No Conflict Check 12/19/15 [Omeprazole] No Conflict Check 12/19/15 Allergies Allergies: Coded Allergies: naproxen (Verified Allergy, Intermediate, 12/02/16) ABDOMINAL PAIN pork derived (porcine) (Verified Allergy, Unknown, 12/02/16) PMhx/Soc History of Surgery: Yes (Lap hernia repair august 2016) Anesthesia Reaction: No Hx Neurological Disorder: No Hx Respiratory Disorders: No Hx Cardiac Disorders: No Hx Psychiatric Problems: No Hx Miscellaneous Medical Probl: Yes Hx Alcohol Use: No Hx Substance Use: No Hx Tobacco Use: No Smoking Status: Never smoker FmHx Family History: No coronary disease, No diabetes, No other Physical Exam Vitals Vital Signs Date Time Temp Pulse Resp B/P Pulse Ox O2 Delivery O2 Flow Rate FiO2 12/02/16 20:01 99.8 97 18 116/76 100 Physical Exam GENERAL: The patient is well developed and appropriate for usual state of health, in no apparent distress. CHEST: Clear to auscultation bilaterally. There are no rales, wheezes or rhonchi. HEART: Regular rate and rhythm. No murmurs, clicks, rubs or gallops. No S3 or S4. ABDOMEN: Soft, generalized abdominal tenderness, more on the mid abdomen. Good bowel sounds. No rebound or guarding. No gross peritonitis. No gross organomegaly or masses. No Hui sign or McBurney point tenderness. BACK: No midline or flank tenderness. EXTREMITIES: Equal pulses bilaterally. There is no peripheral clubbing, cyanosis or edema. No focal swelling or erythema. Full range of motion. Grossly neurovascularly intact. NEURO: Alert and oriented. Cranial nerves 2-12 intact. Motor strength in all 4 extremities with 5/5 strength. Sensation grossly intact. Normal speech and gait. SKIN: There is no apparent rash or petechia. The skin is warm and dry. HEMATOLOGIC AND LYMPHATIC: There is no evidence of excessive bruising or lymphedema. No gross cervical, axillary, or inguinal lymphadenopathy. Result Diagram: 12/02/16213912/02/162139 Results 24 hrs Laboratory Tests Test 12/02/16 21:40 White Blood Count 5.510^3/ul Red Blood Count 4.1810^6/ul Hemoglobin 11.8g/dl Hematocrit 36.1% Mean Corpuscular Volume 86.4fl Mean Corpuscular Hemoglobin 28.2pg Mean Corpuscular Hemoglobin Concent 32.7g/dl Red Cell Distribution Width 12.9% Platelet Count 95742^3/UL Mean Platelet Volume 9.3fl Neutrophils % 42.5% Lymphocytes % 42.4% Monocytes % 12.2% Eosinophils % 2.0% Basophils % 0.7% Nucleated Red Blood Cells % 0.0/100WBC Neutrophils # (Manual) 2.310^3/ul Lymphocytes # 2.310^3/ul Monocytes # 0.710^3/ul Eosinophils # 0.110^3/ul Basophils # 0.010^3/ul Nucleated Red Blood Cells # 0.010^3/ul Urine Color STRAW Urine Clarity CLEAR Urine pH 8.0 Urine Specific [place] 1.015 Urine Ketones NEGATIVEmg/dL Urine Nitrite NEGATIVEmg/dL Urine Bilirubin NEGATIVEmg/dL Urine Urobilinogen NEGATIVEmg/dL Urine Leukocyte Esterase NEGATIVELeu/ul Urine Hemoglobin NEGATIVEmg/dL Urine Glucose NEGATIVEmg/dL Urine Total Protein NEGATIVEmg/dl Urine Test NEGATIVE Sodium Level 137mmol/L Potassium Level 3.9mmol/L Chloride Level 104mmol/L Carbon Dioxide Level 23mmol/L Anion Gap 14 Blood Urea Nitrogen 13mg/dl Creatinine 0.65mg/dl Glucose Level 89mg/dl Calcium Level 9.1mg/dl Total Bilirubin 0.2mg/dl Direct Bilirubin 0.00mg/dl Indirect Bilirubin 0.2mg/dl Aspartate Amino Transf (AST/SGOT) 20IU/L Alanine Aminotransferase (ALT/SGPT) 24IU/L Alkaline Phosphatase 46IU/L Total Protein 6.8g/dl Albumin 4.3g/dl Globulin 2.50g/dl Albumin/Globulin Ratio 1.72 Lipase 132U/L Current Medications Medications (Trade) Dose Ordered Sig/Leidy Route PRN Reason Start Time Stop Time Status Last Admin Dose Admin Sodium Chloride (NS) 1,000 ml @ 1,000 mls/hr Q1H STAT IV 12/02/16 21:17 12/02/16 22:16 DC 12/02/16 21:35 Morphine Sulfate (morphine) 4 mg ONCE STAT IV 12/02/16 21:17 12/02/16 21:18 DC 12/02/16 21:35 Ondansetron HCl (Zofran Inj) 4 mg ONCE STAT IV 12/02/16 21:17 12/02/16 21:18 DC 12/02/16 21:35 IV Flush 10 ml 10 ml STK-MED ONCE .ROUTE 12/02/16 22:38 12/02/16 22:39 DC 12/02/16 22:56 Sodium Chloride (NS) 100 ml @ ud STK-MED ONCE .ROUTE 12/02/16 22:38 12/02/16 22:39 DC 12/02/16 22:56 Iohexol (Omnipaque 300mg/ ml) 150 ml STK-MED ONCE .ROUTE 12/02/16 22:38 12/02/16 22:39 DC 12/02/16 22:56 Morphine Sulfate (morphine) 4 mg ONCE STAT IV 12/02/16 22:46 12/02/16 22:47 DC 12/02/16 22:48 Patient was given medication for pain here in emergency department, after treatment, patient verbalized feeling much better. Patient's pain is improved.Patient was given Zofran here in the emergency department. After treatment, patient was able to tolerate po fluids here in the emergency department without any vomiting. There is no signs and symptoms of dehydration. Normal saline IV bolus was given here in emergency department for rehydration, patient tolerated IV fluids. PROCEDURE: CT abdomen and pelvis with contrast. CLINICAL INDICATION: Abdominal pain TECHNIQUE: CT scan of the abdomen and pelvis without contrast was performed on a 64-slice CT scanner utilizing axial imaging from the lung bases through the pubis symphysis. The patient was scanned after the uneventful intravenous administration of 80 cc of Omnipaque-300. Sagittal and coronal reformatted images were made. CTDI vol 7.37 mGy and DLP 376.40 mGy-cm One of the following 3 dose reduction techniques were used during this CT examination: automated exposure control; adjustment of the mA and /or kV according to patient size; or use of iterative reconstruciton technique. COMPARISON: Abdomen KUB 08/31/2016 and a gastric emptying study 07/04/2016 FINDINGS: CT abdomen: The lung bases are clear. The visualized heart size is normal. No pericardial or pleural effusions are present. The visualized liver demonstrates multiple hypodense foci in the right and left lobes compatible with hepatic cysts. An incompletely opacified posterior segment right hepatic lobe hemangioma is noted which measures 3.1 cm AP by 2.9 cm in transverse dimensions. The visualized spleen, pancreas, gallbladder, and bilateral adrenal glands are normal. The stomach is incompletely distended with gastric contents. The visualized kidneys are normal bilaterally without evidence for nephroureterolithiasis or hydroureteronephrosis. No evidence for ascites or pneumoperitoneum is present. The visualized aorta is normal without aneurysmal dilatation. The visualized bowel is nonobstructive. No evidence for diverticulosis, diverticulitis, or appendicitis is present. CT pelvis: The uterus is heterogeneous and enlarged with a posterior partially calcified large leiomyoma which measures 3.5 cm AP by 3.5 cm in transverse dimensions. An additional anterior fundal uterine mass is noted measuring 2.4 cm in transverse dimensions also compatible with a leiomyoma. A degenerating right ovarian cyst measuring 1.6 cm is noted. The ovaries are otherwise normal in size. A small amount of pelvic ascites is present. No evidence for pathologic lymphadenopathy is noted. Moderate distension of the urinary bladder is present. The surrounding osseous structures are normal.. IMPRESSION: 1. Posterior segment right hepatic lobe hemangioma measuring approximately 3.1 cm AP by 2.9 cm in transverse dimensions. 2. Multiple hepatic cysts 3. Leiomyomatous uteri with large calcified degenerating leiomyoma measuring 3.5 cm AP by 3.5 cm in transverse dimensions. 4. Small amount of pelvic ascites 5. Degenerating right ovary corpus luteum cyst RPTAT: HDC .Faviola Shaffer MD, MD Date Time Electronically viewed and signed by .Faviola Shaffer MD, MD on 12/02/2016 23: 12 .C/ CC: ODALYS LEO [employer]TER Procedures/MDM Medical Decision Making: Patient's symptoms of pain most likely is consistent with leiomyoma noted in the uterus, most likely from the fibroids. Patient has an incidental finding of an hemangioma in the lobe, most likely incidental, not causing the pain. Liver function tests are normal. Lipase is normal. No perforation noted. There is low suspicion for abdominal emergencies at this time. Patients abdominal exam is normal at this time. Patients radiology exam does not show any abdominal emergencies at this time. There is low suspicion for appendicitis, cholecystitis, abdominal aortic aneurysms or peritonitis at this time. There is low suspicion for sepsis. Patient appears well and is hemodynamically stable. Disposition: Home. Condition: Stable Prescription [place], Zofran Instructions: Patient is advised to take medications as prescribed. Patient is advised to rest, increase fluid intake and do brat diet for next 1-2 days and progress as tolerated. See gynecology doctor for evaluation of leiomyoma. Patient is advised that if symptoms are worse, severe abdominal pain, uncontrolled vomiting, high fever, severe flank pain, worst signs and symptoms, to return to the emergency department immediately. Otherwise, patient can follow up with primary care doctor in 5-7 days. Departure Diagnosis: Primary Impression: Leiomyoma Additional Impressions: Ovarian cyst Laterality: right Qualified Code: N83.201 - Cyst of right ovary Hepatic hemangioma Condition: Stable Patient Instructions: Ovarian Cyst, Uterine Fibroids Additional Instructions: Patient is advised to take medications as prescribed. Patient is advised to rest , increase fluid intake and do brat diet for next 1-2 days and progress as tolerated. See gynecology doctor for evaluation of leiomyoma. Patient is advised that if symptoms are worse, severe abdominal pain, uncontrolled vomiting , high fever, severe flank pain, worst signs and symptoms, to return to the emergency department immediately. Otherwise, patient can follow up with primary care doctor in 5-7 days. ODALYS LEO NP Dec 02, 2016 21:29
[2016-12-02 22:08] LABS: BASOPHILS % 0.7 % (0.0-2.0); EOSINOPHILS # 0.1 10^3/ul (0.0-0.5); HEMATOCRIT 36.1 % (37.0-47.0); HEMOGLOBIN 11.8 g/dl (12.0-16.0); LYMPHOCYTES # 2.3 10^3/ul (0.8-2.9); LYMPHOCYTES % 42.4 % (15.0-51.0); MEAN CORPUSCULAR HEMOGLOBIN 28.2 pg (29.0-33.0); MEAN CORPUSCULAR HGB CONC 32.7 g/dl (32.0-37.0); MEAN CORPUSCULAR VOLUME 86.4 fl (82.0-101.0); MEAN PLATELET VOLUME 9.3 fl (7.4-10.4); MONOCYTE # 0.7 10^3/ul (0.3-0.9); MONOCYTES % 12.2 % (0.0-11.0); NEUTROPHILS % 42.5 % (39.0-77.0); PLATELET COUNT 245 10^3/UL (140-415); RED BLOOD COUNT 4.18 10^6/ul (4.20-5.40); RED CELL DISTRIBUTION WIDTH 12.9 % (11.5-14.5); WHITE BLOOD COUNT 5.5 10^3/ul (4.8-10.8)
[2016-12-02 22:13] LABS: ADD UMIC NO; UR ASCORBIC ACID NEGATIVE (NEGATIVE); UR BILIRUBIN (Dip) NEGATIVE (NEGATIVE); UR BLOOD (Dip) NEGATIVE (NEGATIVE); UR CLARITY CLEAR (CLEAR); UR COLOR STRAW (YELLOW); UR GLUCOSE (Dip) NEGATIVE (NEGATIVE); UR KETONES (Dip) NEGATIVE (NEGATIVE); UR LEUKOCYTE ESTERASE (Dip) NEGATIVE Leu/ul (NEGATIVE); UR NITRITE (Dip) NEGATIVE (NEGATIVE); UR SPECIFIC GRAVITY (Dip) 1.015 (1.003-1.030); UR TOTAL PROTEIN (Dip) NEGATIVE (NEGATIVE); UR UROBILINOGEN (Dip) NEGATIVE (NEGATIVE)
[2016-12-02 22:30] LABS: ALBUMIN 4.3 g/dl (3.3-4.9); ALBUMIN/GLOBULIN RATIO 1.72; BILIRUBIN,INDIRECT 0.2 mg/dl (0-1.1); BILIRUBIN,TOTAL 0.2 mg/dl (0.2-1.3); CALCIUM 9.1 mg/dl (8.4-10.2); CREATININE 0.65 mg/dl (0.44-1.00); POTASSIUM 3.9 mmol/L (3.5-5.1); TOTAL PROTEIN 6.8 g/dl (6.1-8.1)
[2016-12-02] MEDS ORDERED: SOD CHLORIDE 0.9% 100 ML ONE (22:38)
[2016-12-02] MEDS ORDERED: IOHEXOL 300MG/ML 150 ML BTL ONE (22:38)
--- NOTE | 2016-12-02 23:12 | RADRPT ---
PROCEDURE: CT abdomen and pelvis with contrast. CLINICAL INDICATION: Abdominal pain TECHNIQUE: CT scan of the abdomen and pelvis without contrast was performed on a 64-slice [facility] utilizing axial imaging from the lung bases through the pubis symphysis. The patient was scanned after the uneventful intravenous administration of 80 cc of Omnipaque-300. Sagittal and coronal re formatted images were made. CTDI vol 7.37 mGy and DLP 376.40 mGy-cm One of the following 3 dose reduction techniques were used during this CT examination: automated exp osure control; adjustment of the mA and /or kV according to patient size; or use of iterative recons truciton technique. COMPARISON: Abdomen KUB 08/31/2016 and a gastric emptying study 07/04/2016 FINDINGS: CT abdomen: The lung bases are clear. The visualized heart size is normal. No pericardial or pleural effusions are present. The visualized liver demonstrates multiple hypodense foci in the right and left lobes compatible wit h hepatic cysts. An incompletely opacified posterior segment right hepatic lobe hemangioma is noted which measures 3.1 cm AP by 2.9 cm in transverse dimensions. The visualized spleen, pancreas, gallb ladder, and bilateral adrenal glands are normal. The stomach is incompletely distended with gastric contents. The visualized kidneys are normal bilaterally without evidence for nephroureterolithiasis or hydrour eteronephrosis. No evidence for ascites or pneumoperitoneum is present. The visualized aorta is normal without aneurysmal dilatation. The visualized bowel is nonobstructive. No evidence for diverticulosis, diverticulitis, or appendic itis is present. CT pelvis: The uterus is heterogeneous and enlarged with a posterior partially calcified large leiomyoma which measures 3.5 cm AP by 3.5 cm in transverse dimensions. An additional anterior fundal uterine mass is noted measuring 2.4 cm in transverse dimensions also compatible with a leiomyoma. A degenerating ri ght ovarian cyst measuring 1.6 cm is noted. The ovaries are otherwise normal in size. A small amoun t of pelvic ascites is present. No evidence for pathologic lymphadenopathy is noted. Moderate dist ension of the urinary bladder is present. The surrounding osseous structures are normal.. IMPRESSION: 1. Posterior segment right hepatic lobe hemangioma measuring approximately 3.1 cm AP by 2.9 cm in t ransverse dimensions. 2. Multiple hepatic cysts 3. Leiomyomatous uteri with large calcified degenerating leiomyoma measuring 3.5 cm AP by 3.5 cm in transverse dimensions. 4. Small amount of pelvic ascites 5. Degenerating right ovary corpus luteum cyst RPTAT: HDC .Faviola Shaffer MD, MD Date Time Electronically viewed and signed by .Faviola Shaffer MD, on 12/02/2016 23:12 .C/
[2016-12-02] MEDS ORDERED: ONDA4TAB14 PO (23:21)
[2016-12-02] MEDS ORDERED: HYDR-906 PO (23:21)
[2016-12-02 23:32] VITALS: BP 101/65; PULSE 68; RESP 18
== END 2016-12-02 23:34 | disposition home or self-care (01) ==
LOC: FTE 19:16
DX: D25.9 Leiomyoma of uterus, unspecified (principal); N83.201 Unspecified ovarian cyst, right side; D18.03 Hemangioma of intra-abdominal structures
CPT/HCPCS: 74177; 80053; 81003; 83690; 84703; 85025; 96374; 96375; 96376; J2270; J2405; J7030; Q9967; Z7502; Z7610